=== PATIENT | male | born 1945 | race Caucasian/White ===

== ENCOUNTER 2022-08-23 21:08 | Emergency (ER) | payer MEDICARE ==
[~2022-08-23] VITALS: Ht 160 cm; Wt 52.2 kg
[2022-08-23] MEDS ORDERED: IV NS 1000 ML 1,000 ML IV ONE (22:00)
[2022-08-23 22:14] LABS: HEMATOCRIT 29.8 % (36.7-47.1); MEAN CORPUSCULAR VOLUME 100.6 fL (73.0-96.2); PLATELET COUNT (AUTO) 283 K/uL (152-348)
[2022-08-23 22:47] LABS: CARBON DIOXIDE 22 mmol/L (21-32); CHLORIDE 106 mmol/L (98-107); CREATININE 1.5 mg/dL (0.6-1.3); GLUCOSE 239 mg/dL (74-106); POTASSIUM 3.5 mmol/L (3.5-5.1); UREA NITROGEN, BLOOD 34 mg/dL (7-18)
[2022-08-23] MEDS ORDERED: MAGNESIUM SULFATE/D5W 300 ML ONE (23:10)
--- NOTE | 2022-08-23 23:16 | NUR ---
Patient's daughter by the bedside is refusing treatment and said she wants to take patient's home. She said all his Doctors are at [facility] and that she would rather take the patient to [facility]. Patient Magnesium as reported by the lab is 1.2, lactic acid 5.5. Doctor aware and wrote some others which the daughter is refusing. Germania the other Registered nurse is in the room talking to patient's daugther of the need to get ordered treament for the patient.
[2022-08-23 23:27] LABS: BAND % (MANUAL) 1 % (0-10); EOSINOPHILS % (MANUAL) 1 % (0-8); LYMPHOCYTES % (MANUAL) 16 % (20-40); MONOCYTES % (MANUAL) 7 % (2-10); NEUTROPHILS % (MANUAL) 75 % (42-75)
--- NOTE | 2022-08-23 23:34 | NUR ---
Patient cleaned of large loose stool and repositioned for comfort at this time. Family remains at bedside, awaiting MD re-evaluation.
--- NOTE | 2022-08-23 23:37 | NUR ---
#20g established in left ac area at this time.
[2022-08-23] MEDS: MAGNESIUM SULFATE/D5W 100 ML IV SCH (23:57)
[2022-08-24] MEDS ORDERED: IV NS 1000 ML 1,000 ML IV ONE (00:30)
[2022-08-24] MEDS: MAGNESIUM SULFATE/D5W 100 ML IV SCH ×2 (01:00)
[2022-08-24 01:11] LABS: BILIRUBIN,DIRECT 0.2 mg/dL (0.0-0.2); BILIRUBIN,TOTAL 0.5 mg/dL (0.2-1.0)
[2022-08-24] MEDS ORDERED: ACETAMINOPHEN ES 500 MG TABLET PO ONE (01:15)
[2022-08-24 01:59] LABS: *BLOOD, URINE NEGATIVE (NEGATIVE); *CLARITY,URINE CLEAR (CLEAR); *COLOR,URINE YELLOW (YELLOW); *KETONES,URINE TRACE (NEGATIVE); *UROBILINOGEN,URINE 0.2 E.U./dl (NORMAL); LEUKOCYTE ESTERASE ,URINE NEGATIVE (NEGATIVE); NITRITE, URINE NEGATIVE (NEGATIVE); PH,URINE 5.5 (5.0-8.0); UGLUCOSE NEGATIVE (NEGATIVE)
[2022-08-24 02:04] LABS: *BILIRUBIN,URIN 2+ (NEGATIVE)
[2022-08-24] MEDS ORDERED: ACETAMINOPHEN ES 500 MG TABLET ONE (02:51)
[2022-08-24 02:54] LABS: RBC,URINE 0-3 /HPF (0-3)
[2022-08-24 02:55] LABS: BACTERIA,URINE FEW /HPF (NONE SEEN); SQUAMOUS EPITHELIAL CELL,UR FEW /HPF (NONE SEEN)
[2022-08-24] MEDS ORDERED: IV NORMAL SALINE 500 ML IV ONE (05:15)
[2022-08-24] MEDS ORDERED: METR500T PO (09:36)
[2022-08-24] MEDS ORDERED: CIPR500T5 PO (09:36)
== END 2022-08-24 10:50 | disposition home or self-care (01) ==
LOC: EDBD 21:08 → ER 21:08
DX: I95.9 Hypotension, unspecified (principal); E87.20 Acidosis, unspecified; K52.89 Other specified noninfective gastroenteritis and colitis; E83.42 Hypomagnesemia; E11.9 Type 2 diabetes mellitus without complications; K57.92 Diverticulitis of intestine, part unspecified, without perforation or abscess without bleeding; I87.2 Venous insufficiency (chronic) (peripheral); Z87.440 Personal history of urinary (tract) infections
CPT/HCPCS: 99285; 96365; 70450; 71045; 96366; 96361; 80048; 83880; 83735; 85025; 84484; 36415 ×2; 83605 ×4; 74176; 81001; 82247; 82248; 87040; 85007; J3475; J7040 ×3; 70030-TC; A9150